=== PATIENT | female | born 1985 | race Two or more races ===

== ENCOUNTER 2019-08-22 09:45 | Emergency (ER) | payer MEDICAID ==
[~2019-08-22] VITALS: Ht 160 cm; Wt 59.0 kg
[2019-08-22] MEDS ORDERED: KETOROLAC 60MG/2ML VIAL IM ONE (11:45)
[2019-08-22 12:03] VITALS: BP 124/68
== END 2019-08-22 12:02 | disposition home or self-care (01) ==
LOC: ER 09:55
DX: M54.31 Sciatica, right side (principal); M54.5 Low back pain; M79.604 Pain in right leg
CPT/HCPCS: 96372; 99283; J1885